=== PATIENT | male | born 1965 | race Caucasian/White ===

== ENCOUNTER 2017-02-08 14:38 | Emergency (ER) | payer BC ==
[~2017-02-08] VITALS: Ht 185.4 cm; Wt 90.7 kg
[2017-02-08 14:50] VITALS: BP 144/90
--- NOTE | 2017-02-08 15:20 | PHYS DOC ---
Past Medical History Past Medical History: Anxiety, Depression Past Surgical History: No Surgical History Alcohol Use: Rarely Drug Use: None Adult General Chief Complaint Chief Complaint: THUMB HPI HPI Patient is a 51 year old male presents to the emergency department stating that he was using his table saw to cut some wood when the wood slipped and he cut his left thumb. He has an avulsion laceration. patient is unsure when his last tetanus immunization occurred. Bleeding is currently up-to-date. Patient has full range of motion of the thumb. Patient is right-hand dominant Review of Systems Review of Systems Constitutional: Denies fever or chills [] Eyes: Denies change in visual acuity, redness, or eye pain [] HENT: Denies nasal congestion or sore throat [] Respiratory: Denies cough or shortness of breath [] Cardiovascular: No additional information not addressed in HPI [] GI: Denies abdominal pain, nausea, vomiting, bloody stools or diarrhea [] : Denies dysuria or hematuria [] Musculoskeletal: Denies back pain or joint pain [] Integument: Denies rash or skin lesions. Avulsion laceration left thumb Neurologic: Denies headache, focal weakness or sensory changes [] Endocrine: Denies polyuria or polydipsia [] Current Medications Current Medications Current Medications Medications (Trade) Dose Ordered Sig/Seng Start Time Stop Time Status Last Admin Dose Admin Diphtheria/ Tetanus/Acell Pertussis (Boostrix) 0.5 ml ONCE ONCE 02/08/17 15:30 02/08/17 15:31 DC 02/08/17 15:48 0.5 ML Gelatin (Gelfoam Size 12-7mm) 1 each 1X ONCE 02/08/17 15:30 02/08/17 15:31 DC 02/08/17 15:46 1 EACH Lidocaine/Sodium Bicarbonate (Buffered Lidocaine 1%) 20 ml 1X ONCE 02/08/17 15:30 02/08/17 15:31 DC 02/08/17 15:46 20 ML Allergies Allergies Allergies Coded Allergies Type Severity Reaction Last Updated Verified No Known Drug Allergies 02/08/17 No Physical Exam Physical Exam Constitutional: Well developed, well nourished, no acute distress, non-toxic appearance. [] HENT: Normocephalic, atraumatic, bilateral external ears normal, oropharynx moist, no oral exudates, nose normal. [] Eyes: PERRLA, EOMI, conjunctiva normal, no discharge. [] Neck: Normal range of motion, no tenderness, supple, no stridor. [] Cardiovascular:Heart rate regular rhythm Lungs & Thorax: No respiratory distress noted Skin: Warm, dry, no erythema, no rash. Avulsion laceration appears to be 2 cm x 1 cm Back: No tenderness Extremities: No tenderness, no cyanosis, no clubbing, ROM intact, no edema. [] Neurologic: Alert and oriented X 3, normal motor function, normal sensory function, no focal deficits noted. [] Psychologic: Affect normal, judgement normal, mood normal. [] Current Patient Data Vital Signs Vital Signs Date Time Temp Pulse Resp B/P (MAP) Pulse Ox O2 Delivery O2 Flow Rate FiO2 02/08/17 14:50 98.5 85 19 99 Room Air 98.5 EKG EKG [] Radiology/Procedures Radiology/Procedures [] Course & Med Decision Making Course & Med Decision Making Pertinent Labs and Imaging studies reviewed. (See chart for details) X-rays were negative for any bony abnormalities per Dr. Carranza. Digital block was placed into the left thumb with approximately 3 or 4 mL used. Site was cleaned with Betadine. An water was used to irrigate the area. Patient's had Gelfoam placed over the area with a tube gauze dressing. He'll be recommended to follow- up with wound clinic for further evaluation. Signs and symptoms to return back to emergency department has been provided. Patient will be discharged home in stable condition signs and symptoms to return back to emergency department as been provided. ZINC CONCERNS OF BEEN PROVIDED. PATIENT WILL ALSO BE PROVIDED WITH A PRESCRIPTION FOR HYDROCODONE FOR SEVERE PAIN AND DISCOMFORT. PATIENT WAS ALSO INSTRUCTED TO USE IBUPROFEN ICE PACKS AND ELEVATION. [] Dragon Disclaimer Dragon Disclaimer This electronic medical record was generated, in whole or in part, using a voice recognition dictation system. Departure Departure Impression: Primary Impression: Avulsion of skin of left thumb Disposition: HOME, SELF-CARE Condition: STABLE Referrals: TANK FLEMING MD (PCP) Patient Instructions: Finger Avulsion Additional Instructions: Activity as tolerated. Ibuprofen for pain and discomfort. Severe pain and discomfort you may take hydrocodone. This medication will cause drowsiness do not take any be alert and oriented. Ice packs on 20 minutes off 20 minutes several times a day. Elevation as much as possible. Follow-up with wound clinic. Please give them a call on Friday to follow up with them Friday or Friday. Scripts Hydrocodone/Apap 5-325 (NORCO 5-325 TABLET) 1 Each Tablet 1 TAB PO PRN Q6HRS Y for PAIN, #20 TAB 0 Refills Prov: BRITNEY SHAH APRN 02/08/17 BRINTEY SHAH APRN Feb 08, 2017 15:20
[2017-02-08] MEDS ORDERED: GELATIN SPONGE SIZE 12-7MM SPONGE. TP ONE (15:30)
[2017-02-08] MEDS ORDERED: LIDOCAINE 1% / SOD BICARB 8.4% 20 ML VIAL. IJ ONE (15:30)
[2017-02-08] MEDS ORDERED: DIPHTH,PERTUSS(ACELL),TET TOX 0.5 ML DISP.SYRIN. VAX IM ONE (15:30)
[2017-02-08] MEDS ORDERED: HYDR-971 PO (16:15)
--- NOTE | 2017-02-09 09:27 | RAD ---
Three-view left thumb radiographs 02/08/2017 Clinical history: Patient cut his left thumb with a table saw. A PA digital radiograph of the left hand was obtained. Oblique and lateral digital radiographs of the left thumb were obtained. The patient is post amputation of the distal soft tissues of the left thumb. No fracture or dislocation is seen. No radiopaque foreign body is noted. 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 No fracture is seen.
== END 2017-02-08 16:28 | disposition home or self-care (01) ==
LOC: ER 14:38
DX: S61.112A Laceration without foreign body of left thumb with damage to nail, initial encounter (principal); F32.9 Major depressive disorder, single episode, unspecified; F41.9 Anxiety disorder, unspecified; W27.0XXA Contact with workbench tool, initial encounter; Y93.89 Activity, other specified; Y92.89 Other specified places as the place of occurrence of the external cause; Y99.8 Other external cause status
CPT/HCPCS: 64450; 73140; 90471; 90715; 99284-25

== ENCOUNTER → 2017-02-13 | Outpatient (CLI) | payer BC ==
[2017-02-08 14:50] VITALS: BP 144/90
[~2017-02-13] MED LIST: HYDR-971 PO
== END | disposition home or self-care (01) ==
LOC: PMGWOUND 12:56
PROVIDERS: ATTEND Emergency Medicine Undersea and Hyperbaric Medicine
DX: S61.002A Unspecified open wound of left thumb without damage to nail, initial encounter (principal); F17.210 Nicotine dependence, cigarettes, uncomplicated; Z72.89 Other problems related to lifestyle; F41.9 Anxiety disorder, unspecified; X58.XXXA Exposure to other specified factors, initial encounter; Y93.89 Activity, other specified; Y92.89 Other specified places as the place of occurrence of the external cause; Y99.8 Other external cause status
CPT/HCPCS: 99214